=== PATIENT | female | born 1940 | race Caucasian/White ===

== ENCOUNTER 2017-05-12 16:56 | Inpatient (IN) ==
[2017-05-12 17:21] LABS: Basophils % 0.4 %; Eosinophils # 0.1 K/mcL (0.0-0.6); Eosinophils % 1.9 %; Hematocrit 31.5 % (35.3-44.9); Hemoglobin 11.3 g/dL (11.5-15.4); Immature Granulocytes % 0.2 % (0-4); Lymphocytes # 1.5 K/mcL (0.6-4.6); Mean Corpuscular HGB Conc 35.9 g/dL (31.6-35.5); Mean Corpuscular Hemoglobin 28.7 pg (28.0-33.3); Mean Corpuscular Volume 79.9 fL (83.0-100.0); Monocytes # 0.4 K/mcL (0.0-1.3); Monocytes % 7.8 %; Neutrophils # 3.2 K/mcL (1.6-8.9); Platelet Count 243 K/mcL (140-400); Red Blood Count 3.94 M/mcL (3.82-4.97); Red Cell Distribution Width 13.4 % (11.5-14.5); Segmented Neutrophils % 60.7 %
[2017-05-12 17:27] LABS: Prothrombin Time 10.4 Seconds (9.4-12.1)
[2017-05-12 17:29] LABS: Activated Partial Thrombo Time 28.9 Seconds (26.0-36.0)
[2017-05-12 17:35] LABS: BUN/Creatinine Ratio 8 (6-26); Blood Urea Nitrogen 6 mg/dL (7-20); Calcium 8.9 mg/dL (8.6-10.8); Carbon Dioxide 23 mEq/L (19-29); Chloride 87 mEq/L (98-109); Glucose 117 mg/dL (70-99); Osmolality,Calculated 251 (280-300); Potassium 4.1 mEq/L (3.5-4.5); Sodium 121 mEq/L (136-145); eGFR For African Americans > 60 (> 60); eGFR For Non-African Americans > 60 (> 60)
[2017-05-12 17:36] LABS: Albumin 3.4 g/dL (3.5-5.0); Albumin/Globulin Ratio 1.2 (1.1-2.2); Bilirubin,Direct 0.2 mg/dL (0.0-0.5); Bilirubin,Indirect 0.2 mg/dL (0.0-1.2); Bilirubin,Total 0.4 mg/dL (0.2-1.2); Globulin 2.8 g/dL (2.4-3.5); Total Protein 6.2 g/dL (6.0-8.3)
--- NOTE | 2017-05-12 17:40 | Emergency Department Note ---
Disposition Clinical Impression: Hyponatremia Disposition: Admitted As Inpatient Condition: Good Referrals: Izabela Fox MD [Primary Care Provider] - Forms: ED Satisfaction Letter Time of Disposition: 17:53 General Adult HPI - General Chief complaint: ED Recheck/Abnormal Lab/Rx Stated complaint: low na Source: patient Limitations: no limitations - History of Present Illness HPI Narrative: Patient presents to the emergency department for evaluation of hyponatremia. She states that she has been having some difficulty with balance as well as generalized weakness over the past week. She states that she was seen by her primary care doctor yesterday, had outpatient labs and was referred to the emergency department today secondary to hyponatremia. He states that she thinks that she is been drinking a normal amount of water, denies excessive intake though she states she has had a slight decrease in appetite. She denies headache visual changes confusion speech changes motor or sensory deficits. She denies chest pain or palpitations. She has had no lower extremity edema. She denies vomiting or diarrhea. She denies change in urination. Pain Scale: 0 - Related Data Home Medications Medication Instructions Recorded Confirmed Ibuprofen 800 mg PO PRN PRN 08/09/16 05/12/17 Lisinopril 2.5 mg PO DAILY 08/09/16 05/12/17 Sertraline [Zoloft] 25 mg PO DAILY 08/09/16 05/12/17 Previous Rx's Medication Instructions Recorded Hydrocodone/Acetaminophen [[place] 1 tab PO TID PRN #3 tab 08/09/16 5-325 Tablet] Allergies Allergy/AdvReac Type Severity Reaction Status Date / Time iodine Allergy Rash Verified 01/27/16 15:28 Constitutional: Reports: weakness. Denies: fever, chills Eyes: Denies: vision change ENT ED: Denies: throat pain, dysphagia Cardiovascular: Denies: chest pain, palpitations, dyspnea on exertion, edema, syncope Respiratory: Denies: cough, dyspnea Gastrointestinal: Denies: abdominal pain, nausea, vomiting, diarrhea, constipation Genitourinary: Denies: urgency, dysuria, frequency, hematuria Musculoskeletal: Denies: back pain, neck pain, joint swelling Integumentary: Denies: rash Neurological: Denies: headache, weakness, numbness, paresthesias, confusion Endocrine: Reports: fatigue Hematological/Lymphatic: Denies: easy bleeding, easy bruising Past Medical History - Past Medical History Medical history: Reports: cancer, diabetes, hyperlipidemia, hypertension Surgical history: Reports: non-contributory Psychiatric history: Reports: depression 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 Absent: scleral icterus - ENT ENT exam: mucous membranes dry, TM's normal bilaterally - Neck Neck exam: Present: normal inspection, full ROM. Absent: meningismus - Respiratory Respiratory exam: Present: normal lung sounds bilaterally - Cardiovascular Cardiovascular exam: Present: regular rate, normal rhythm, normal heart sounds - Abdominal Exam Abdominal exam: Present: soft, Non-Tender, normal bowel sounds. Absent: tenderness, distention, guarding, rebound, rigidity - Extremities Exam Extremities exam: Present: normal inspection, full ROM, normal capillary refill. Absent: tenderness, calf tenderness - Expanded Lower Extremity Exam Neurovascular/Tendon exam: Present: normal capillary refill - Neurological Exam Neurological exam: Present: alert, oriented X3, CN II-XII intact, normal gait. Absent: motor sensory deficit - Psychiatric Psychiatric exam: Present: normal affect, normal mood - Skin Skin exam: Present: warm, dry, intact, normal color Course Vital Signs Temperature 98.8 F 05/12/17 16:57 Pulse Rate 91 05/12/17 16:57 Respiratory Rate 18 05/12/17 16:57 Blood Pressure 151/50 05/12/17 16:57 O2 Sat by Pulse Oximetry 98 05/12/17 16:57 Temperature 98.8 F 05/12/17 16:57 Pulse Rate 91 05/12/17 16:57 Respiratory Rate 18 05/12/17 16:57 Blood Pressure 151/50 05/12/17 16:57 O2 Sat by Pulse Oximetry 98 05/12/17 16:57 Oxygen Delivery Oxygen Delivery Room Air Medical Decision Making - Lab Data Lab results reviewed: Yes I reviewed the patient's lab results. Result diagrams: 05/12/17 17:00 05/12/17 17:00 Lab Results 05/12/17 05/12/17 05/12/17 Range/Units 17:00 17:00 17:00 WBC 5.3 (4.3-11.1) K/mcL RBC 3.94 (3.82-4.97) M/mcL Hgb 11.3 L (11.5-15.4) g/dL Hct 31.5 L (35.3-44.9) % MCV 79.9 L (83.0-100.0) fL MCH 28.7 (28.0-33.3) pg MCHC 35.9 H (31.6-35.5) g/dL RDW 13.4 (11.5-14.5) % Plt Count 243 (140-400) K/mcL MPV 9.0 L (9.4-12.4) fL Immature Gran % 0.2 (0-4) % Seg Neutrophils % 60.7 % Lymphocytes % 29.0 % Monocytes % 7.8 % Eosinophils % 1.9 % Basophils % 0.4 % Neutrophils # 3.2 (1.6-8.9) K/mcL Lymphocytes # 1.5 (0.6-4.6) K/mcL Monocytes # 0.4 (0.0-1.3) K/mcL Eosinophils # 0.1 (0.0-0.6) K/mcL Basophils # 0.0 (0.0-0.2) K/mcL PT 10.4 (9.4-12.1) Seconds INR 1.0 APTT 28.9 (26.0-36.0) Seconds Sodium (136-145) mEq/L Potassium (3.5-4.5) mEq/L Chloride (98-109) mEq/L Carbon Dioxide (19-29) mEq/L BUN (7-20) mg/dL Creatinine (0.57-1.11) mg/dL Est GFR ( Amer) (> 60) Est GFR (Non-Af Amer) (> 60) BUN/Creatinine Ratio (6-26) Glucose (70-99) mg/dL Calculated Osmolality (280-300) Calcium (8.6-10.8) mg/dL Total Bilirubin 0.4 (0.2-1.2) mg/dL Direct Bilirubin 0.2 (0.0-0.5) mg/dL Indirect Bilirubin 0.2 (0.0-1.2) mg/dL AST 25 (5-34) Units/L ALT 25 (0-55) Units/L Alkaline Phosphatase 69 (38-126) Units/L Troponin I (0-0.03) ng/mL Serum Total Protein 6.2 (6.0-8.3) g/dL Albumin 3.4 L (3.5-5.0) g/dL Globulin 2.8 (2.4-3.5) g/dL Albumin/Globulin Ratio 1.2 (1.1-2.2) Lipase 44 (8-78) Units/L 05/12/17 05/12/17 Range/Units 17:00 17:00 WBC (4.3-11.1) K/mcL RBC (3.82-4.97) M/mcL Hgb (11.5-15.4) g/dL Hct (35.3-44.9) % MCV (83.0-100.0) fL MCH (28.0-33.3) pg MCHC (31.6-35.5) g/dL RDW (11.5-14.5) % Plt Count (140-400) K/mcL MPV (9.4-12.4) fL Immature Gran % (0-4) % Seg Neutrophils % % Lymphocytes % % Monocytes % % Eosinophils % % Basophils % % Neutrophils # (1.6-8.9) K/mcL Lymphocytes # (0.6-4.6) K/mcL Monocytes # (0.0-1.3) K/mcL Eosinophils # (0.0-0.6) K/mcL Basophils # (0.0-0.2) K/mcL PT (9.4-12.1) Seconds INR APTT (26.0-36.0) Seconds Sodium 121 L (136-145) mEq/L Potassium 4.1 (3.5-4.5) mEq/L Chloride 87 L (98-109) mEq/L Carbon Dioxide 23 (19-29) mEq/L BUN 6 L (7-20) mg/dL Creatinine 0.78 (0.57-1.11) mg/dL Est GFR ( Amer) > 60 (> 60) Est GFR (Non-Af Amer) > 60 (> 60) BUN/Creatinine Ratio 8 (6-26) Glucose 117 H (70-99) mg/dL Calculated Osmolality 251 L (280-300) Calcium 8.9 (8.6-10.8) mg/dL Total Bilirubin (0.2-1.2) mg/dL Direct Bilirubin (0.0-0.5) mg/dL Indirect Bilirubin (0.0-1.2) mg/dL AST (5-34) Units/L ALT (0-55) Units/L Alkaline Phosphatase (38-126) Units/L Troponin I 0.01 (0-0.03) ng/mL Serum Total Protein (6.0-8.3) g/dL Albumin (3.5-5.0) g/dL Globulin (2.4-3.5) g/dL Albumin/Globulin Ratio (1.1-2.2) Lipase (8-78) Units/L ITS Impressions Chest X-Ray 05/12/17 17:02 IMPRESSION: Atherosclerosis and mild enlarged heart size. No acute abnormality. D/ / 05/12/2017 17:38:58 Kyler Huerta MD / [email or web address] Interpreting Provider: Kyler Huerta MD Head CT 05/12/17 17:04 IMPRESSION: No acute intracranial abnormality. D/ / Kong Bonds MD / Kong Bonds MD Interpreting Provider: Kong Bonds MD - Radiology Data Radiology results reviewed: Yes I reviewed the patient's radiology results. - EKG Data EKG #1 EKG attestation: Yes I reviewed and interpreted this EKG. EKG shows normal: sinus rhythm (Normal sinus rhythm with rate of 70. Left axis deviation. No arrhythmia. No acute ST segment or T-wave changes. First- degree AV block.)
[2017-05-12] MEDS: 0.9 % Sodium Chloride 1,000 ML IVC SCH (17:41)
[2017-05-12] MEDS ORDERED: 0.9 % Sodium Chloride 1,000 ML IVC SCH (18:15)
[2017-05-12 22:50] LABS: Bilirubin,Urine Negative (Negative); Blood,Urine Negative (Negative); Clarity,Urine Clear (Clear); Color,Urine Yellow (Yellow); Glucose,Urine (UA) Normal (Normal); Ketones,Urine Negative (Negative); Leukocyte Esterase,Urine Negative (Negative); Nitrite,Urine Negative (Negative); Protein,Urine Negative (Neg-Trace); Specific Gravity,Urine <= 1.005 (1.010-1.025); Urobilinogen,Urine Normal (Normal)
[2017-05-12 22:53] LABS: BUN/Creatinine Ratio 10 (6-26); Blood Urea Nitrogen 7 mg/dL (7-20); Calcium 8.5 mg/dL (8.6-10.8); Carbon Dioxide 23 mEq/L (19-29); Chloride 90 mEq/L (98-109); Glucose 122 mg/dL (70-99); Osmolality,Calculated 251 (280-300); Potassium 3.8 mEq/L (3.5-4.5); Sodium 121 mEq/L (136-145); eGFR For African Americans > 60 (> 60); eGFR For Non-African Americans > 60 (> 60)
[2017-05-13] MEDS: 0.9 % Sodium Chloride 1,000 ML IVC SCH ×2 (02:47→16:14)
[2017-05-13 05:50] LABS: Phosphorous 3.1 mg/dL (2.3-4.7)
[2017-05-13] MEDS ORDERED: traMADol 50 MG TABLET PO PRN (11:47)
--- NOTE | 2017-05-13 11:55 | Internal Med History&Physical ---
Date of Encounter: 05/13/17 Time of Encounter: 11:20 Assessment and Plan (1) Hyponatremia Current visit: Yes Status: Acute Present on all lab checks since 2013. Suspect multifactorial etiology including Lasix use and dilutional from fluid intake. She was ordered normal saline IV through emergency room. I will discontinue this now. Lasix will be held and labs monitored. (2) Microcytic anemia Current visit: Yes Status: Acute Will order anemia testing in a.m. She has been using meloxicam and ibuprofen daily. (3) Depression Current visit: Yes Status: Acute Continue Zoloft. Qualifiers: Depression Type: unspecified Qualified Code(s): F32.9 - Major depressive disorder, single episode, unspecified (4) Hypertension Current visit: Yes Status: Chronic Continue lisinopril Qualifiers: Hypertension type: essential hypertension Qualified Code(s): I10 - Essential (primary) hypertension (5) Dementia Current visit: Yes Status: Acute Suspected based on clock drawing test. We will do MMSE. Head CT showed no acute pathology. Qualifiers: Dementia type: unspecified type Dementia behavioral disturbance: without behavioral disturbance Qualified Code(s): F03.90 - Unspecified dementia without behavioral disturbance Internal Medicine - H&P: HPI Chief complaint: Hyponatremia Admitted From: Home Plans for Post Hospital Care: Home History of present illness: Ms. Godinez is a 77 year old female who was contacted by staff at her PCP office and instructed to go to emergency room because of low sodium on lab work. Hyponatremia was confirmed on labs in the emergency room. She was [facility] to [facility] floor for ongoing care needs. She states she has felt dizzy and weak for several weeks but there has been no acute change in the past few days. She has had occasional falls at home without significant injury. She takes Lasix daily but is uncertain of the diagnosis for its use. She states she drinks 6-8 glasses of water daily. Her cardiovascular history is significant for hypertension she denies ID heart failure angina DVT or pulmonary embolus. Past Med Surg Social Fam HX - Past Medical History Medical history: cancer, diabetes, hyperlipidemia, hypertension Psychiatric history: anxiety, depression - Past Surgical History Surgical History: non-contributory - Social History Smoking Status: Never smoker Smokeless Tobacco Status: No Alcohol use: none Drug use: none Internal Medicine - H&P: Meds Hydrocodone/Acetaminophen [[place] 5-325 Tablet] 1 tab PO TID PRN #3 tab 08/09/16 [Rx] Ibuprofen 800 mg PO PRN PRN 08/09/16 [History] Lisinopril 2.5 mg PO DAILY 08/09/16 [History] Sertraline [Zoloft] 25 mg PO DAILY 08/09/16 [History] Allergies iodine Allergy (Verified 01/27/16 15:28) Rash All Systems PM: A 10-system review of systems was performed and is negative for pertinent findings except as documented above in the HPI. Review of systems: Gen.: She states her weight has been stable the past few months Cardiovascular: As per history of present illness Respiratory: She is a lifelong nonsmoker. She reports a history of asthma. She does not use home oxygen. GI: She denies disorders of her liver gallbladder or exocrine pancreas : She reports she has had "dropped bladder" but denies other kidney or bladder disorders Neurologic: She denies large distribution strokes or seizures. She states her memory is deficient. Endocrine: She has history of hyperlipidemia but denies diabetes or thyroid disease Hematology/oncology: She had uterine cancer with curative hysterectomy approximately 25 years ago. She denies other internal malignancies. 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 She denies gout or other bone joint or muscle disorders. - Constitutional Vitals: Temp Pulse Resp BP Pulse Ox 98.4 F 69 16 101/65 99 05/13/17 10:34 05/13/17 10:34 05/13/17 10:34 05/13/17 10:34 05/13/17 10:34 Exam: Gen.: She is a well-developed well-nourished female lying in bed who appears in no acute distress HEENT: Head is atraumatic and normocephalic. Eyes: EOMI. There is no scleral icterus. Mouth: Mucosa is moist. Neck: Supple and nontender. There is no thyromegaly or adenopathy noted. Heart: Regular without murmurs gallops or ectopics Lungs: No wheezes or crackles are heard. Abdomen: Soft and nontender. No masses or guarding are noted. Extremities: There is no cyanosis or clubbing noted. There is trace edema of the dorsum of the feet and lower legs. She has a few scattered ecchymosis on her arms and legs. Dorsalis pedis and posterior tibial pulses are trace palpable bilaterally. Neurologic: Mental status: She has a flat affect. She is able to answer most but not all questions of past medical history. Clock face drawing shows slight misplacement of the numbers and she was unable to place the hands correctly at requested time of 11:10. Cranial nerves: Smile is symmetric. Forehead wrinkles bilaterally. Tongue protrudes midline. EOMI. Motor: There is no pronator drift. Cerebellar: Finger to nose is intact bilaterally. Skin: Warm and dry Internal Med - H&P Results - Labs CBC & Chem 7: 05/12/17 17:00 05/12/17 21:55 Labs: BMP 05/12/17 21:55 Sodium 121 L Potassium 3.8 Chloride 90 L Carbon Dioxide 23 BUN 7 Creatinine 0.73 Glucose 122 H Calcium 8.5 L Urine 05/12/17 Range/Units 22:45 Urine Color Yellow (Yellow) Urine Clarity Clear (Clear) Urine pH 6.0 (5.0-8.0) pH Units Ur Specific [place] <= 1.005 L (1.010-1.025) Urine Protein Negative (Neg-Trace) mg/dL Urine Glucose (UA) Normal (Normal) mg/dL
[2017-05-13] MEDS: Lisinopril 20 MG TABLET PO SCH (13:56)
--- NOTE | 2017-05-13 15:32 | Electrocardiograph Report ---
[address] [place], [place] [address] Test Date: 2017-05-12 Pat Name: Shannan Godinez Department: [id number] Room: [facility] Gender: F Baker Paint: : [id number] Requested By: Tee Gonzalez Order Number: [id number] Reading MD: Chepe Grimaldo Measurements Intervals [place] Rate: 70 P: 49 HI: 232 QRS: -18 QRSD: 88 T: 20 QT: 368 QTc: 389 Interpretive Statements SINUS RHYTHM WITH SINUS ARRHYTHMIA WITH FIRST DEGREE AV BLOCK LOW QRS VOLTAGE IN PRECORDIAL LEADS Electronically Signed On 05-13-2017 15:29:58 EDT by Chepe Grimaldo
[2017-05-13] MEDS: Nystatin SUSP 5 ML UD.LIQ PO SCH ×2 (17:27→20:33)
[2017-05-13] MEDS ORDERED: Ibuprofen 600 MG TABLET PO PRN (17:49)
[2017-05-14] MEDS ORDERED: *HR* Enoxaparin 40 MG/0.4 ML SYRINGE SQ SCH (06:00)
[2017-05-14 06:06] LABS: Basophils % 0.5 %; Eosinophils # 0.1 K/mcL (0.0-0.6); Eosinophils % 2.7 %; Hematocrit 27.7 % (35.3-44.9); Hemoglobin 9.9 g/dL (11.5-15.4); Immature Granulocytes % 0.5 % (0-4); Lymphocytes # 1.1 K/mcL (0.6-4.6); Mean Corpuscular HGB Conc 35.7 g/dL (31.6-35.5); Mean Corpuscular Hemoglobin 28.9 pg (28.0-33.3); Mean Corpuscular Volume 80.8 fL (83.0-100.0); Mean Platelet Volume 9.1 fL (9.4-12.4); Monocytes # 0.3 K/mcL (0.0-1.3); Monocytes % 7.4 %; Neutrophils # 2.2 K/mcL (1.6-8.9); Platelet Count 205 K/mcL (140-400); Red Blood Count 3.43 M/mcL (3.82-4.97); Red Cell Distribution Width 13.9 % (11.5-14.5); Segmented Neutrophils % 58.9 %
[2017-05-14 06:23] LABS: BUN/Creatinine Ratio 15 (6-26); Blood Urea Nitrogen 10 mg/dL (7-20); Calcium 8.5 mg/dL (8.6-10.8); Carbon Dioxide 22 mEq/L (19-29); Chloride 96 mEq/L (98-109); Glucose 94 mg/dL (70-99); Osmolality,Calculated 263 (280-300); Potassium 4.2 mEq/L (3.5-4.5); Sodium 127 mEq/L (136-145); eGFR For African Americans > 60 (> 60); eGFR For Non-African Americans > 60 (> 60)
[2017-05-14] MEDS: Nystatin SUSP 5 ML UD.LIQ PO SCH (09:00)
[2017-05-14] MEDS: Lisinopril 20 MG TABLET PO SCH (09:00)
[2017-05-14 09:56] LABS: % Iron Saturation 11 % (15-50); Iron 37 mcg/dL (50-170); Transferrin 233 mg/dL (180-382)
[2017-05-14 10:16] LABS: Ferritin 76 ng/ml (5-204)
[2017-05-14 10:31] LABS: Folate 9.9 ng/mL (7.0-31.4)
--- NOTE | 2017-05-14 11:42 | Discharge Summary ---
Date of Encounter: 05/14/17 Time of Encounter: 11:30 - Discharge Diagnosis (1) Hyponatremia Priority: Primary Status: Acute (2) Microcytic anemia Priority: Secondary Status: Acute (3) Depression Priority: Secondary Status: Chronic Qualifiers: Depression Type: unspecified Qualified Code(s): F32.9 - Major depressive disorder, single episode, unspecified (4) Hypertension Priority: Secondary Status: Chronic Qualifiers: Hypertension type: essential hypertension Qualified Code(s): I10 - Essential (primary) hypertension - Discharge Medications Prescriptions: Ascorbic Acid [Vitamin C] 500 mg PO DAILY #30 tablet.er Ferrous Sulfate 325 mg PO DAILY #30 tablet. Home Medications: Hydrocodone/Acetaminophen [[place] 5-325 Tablet] 1 tab PO TID PRN #3 tab 08/09/16 [Rx] Sertraline [Zoloft] 25 mg PO DAILY 08/09/16 [History] Ascorbic Acid [Vitamin C] 500 mg PO DAILY #30 tablet.er 05/14/17 [Rx] Ferrous Sulfate 325 mg PO DAILY #30 tablet. 05/14/17 [Rx] Lisinopril [Zestril] 20 mg PO DAILY tab 05/14/17 [Rx] Allergies/Adverse Reactions: Allergies iodine Allergy (Verified 01/27/16 15:28) Rash Date of admission: 05/13/17 18:33 Primary care physician: Izabela Fox - Patient Status Disposition: Home, Self-Care Condition: Good Functional capacity at discharge: independent ambulation Overall status at discharge: patient is progressing back to baseline - Discharge Instructions Follow Up With: Izabela Fox MD [Primary Care Provider] - 1 week - Diet and Activity Activity: resume usual activities as tolerated Diet: advance to your usual diet Hospital course: Ms. Godinez is a 77 year old female who was contacted by staff at her PCP office and instructed to go to emergency room because of low sodium on lab work. Hyponatremia was confirmed on labs in the emergency room. She was admitted to [facility] for ongoing care needs. Initial orders were written by the emergency room physician. I saw her on May 13 and performed the history and physical. Lasix was held and she was given IV normal saline. Her sodium destini to 127 by the following day. She felt her balance and ambulation ability was back to baseline and felt better overall on May 14. She will remain off Lasix at discharge. Bn peptide was normal at 70 on labs May 14. Anemia testing showed iron 37, transferrin saturation 11%, ferritin 76, transferrin 233, B12 504, and folate 9.9. She will be prescribed ferrous sulfate with vitamin C at discharge. Hemoglobin decreased with IV fluid administration to 9.9 on the day of discharge. She will be discharged home and follow with her PCP Dr. Fox within 1 week. I told her she should remain off ibuprofen and meloxicam. She will use tramadol when necessary for pain. - Time Spent with Patient Total time spent providing and/or coordinating discharge services: - Constitutional Vitals: Temp Pulse Resp BP Pulse Ox 97.7 F 70 16 134/67 97 05/14/17 07:30 05/14/17 09:48 05/14/17 09:48 05/14/17 09:48 05/14/17 09:56
--- NOTE | 2017-05-14 12:11 | Physician Discharge Referral ---
Home Health/Hosp Referral Info Transfer to: Home Health Attending Provider: Kendell Provider in Charge Post Discharge: PCP James) - Diagnosis (1) Hyponatremia Priority: Primary Status: Acute (2) Microcytic anemia Priority: Secondary Status: Acute (3) Depression Priority: Secondary Status: Chronic (4) Hypertension Priority: Secondary Status: Chronic - Respiratory Orders Smoking Cessation: Smoking cessation has been advised. For more information, call the [place] Tobacco Quit Line at 9-412-NDVA-NOW. - Diet/Nutrition Diet/Nutrition Orders: Regular - Activity Activity Orders: Ambulate - Services Needed Following services are medically necessary services: Nursing, Home Health Aide, Physical Therapy, Occupational Therapy - Transfer Medications Prescriptions: Ascorbic Acid [Vitamin C] 500 mg PO DAILY #30 tablet.er Ferrous Sulfate 325 mg PO DAILY #30 tablet. Home Medications: Hydrocodone/Acetaminophen [[place] 5-325 Tablet] 1 tab PO TID PRN #3 tab 08/09/16 [Rx] Sertraline [Zoloft] 25 mg PO DAILY 08/09/16 [History] Ascorbic Acid [Vitamin C] 500 mg PO DAILY #30 tablet.er 05/14/17 [Rx] Ferrous Sulfate 325 mg PO DAILY #30 tablet. 05/14/17 [Rx] Lisinopril [Zestril] 20 mg PO DAILY tab 05/14/17 [Rx] Allergies/Adverse Reactions: Allergies iodine Allergy (Verified 01/27/16 15:28) Rash Certification: Further, I certify that my clinical findings support that this patient is homebound (i.e. absences from home require considerable and taxing effort and are for medical reasons or voodoo services or infrequently or short duration when for other reasons) because: Homebound Reason: Patient requires assistance of a person or device to safely leave home, Leaving home requires considerable and taxing effort due to condition (Marginally safe ambulatory skills, new medications) Attestation: My signature below is to certify that this patient is under my care and that I, or nurse practitioner, or a physician's unit assistant working with me, has a face-to -face encounter with this patient.
[2017-05-14 12:20] VITALS: BP 112/62
== END 2017-05-14 12:37 | disposition home health service (06) | DRG 641 ==
LOC: EMEROOPIK 16:56 → INPPIK 16:56
PROVIDERS: ADMIT Internal Medicine; ATTEND Internal Medicine

== ENCOUNTER 2018-05-20 13:21 | Inpatient (IN) ==
[2018-05-20] MEDS ORDERED: 0.9 % Sodium Chloride 1,000 ML IVC SCH ×2 (13:30→16:31)
--- NOTE | 2018-05-20 13:38 | Emergency Department Note ---
Disposition Clinical Impression: Altered mental status, Urinary tract infection, Hyponatremia Disposition: Admitted As Inpatient Altered Mental Status HPI - General Chief Complaint: ED Altered Mental Status Stated Complaint: Confusion and falling Time Seen by Provider: 05/20/18 13:25 Source: patient Mode of arrival: wheelchair Limitations: altered mental status Nursing Notes Reviewed: Yes Vital Signs Reviewed: Yes - History of Present Illness HPI Narrative: Patient has been falling more recently. 7 times since Wednesday. She claims she just loses her balance. She does not black out or have seizures. She had an appointment today with her doctor but her son locked his keys in the car so they came here instead she denies any pain fevers chills nausea vomiting or other complaints. She does have a history of early dementia MD complaint: altered mental status Onset (ago): day(s) (several) Timing confirmed by: family member Pain Scale: 0 Associated symptoms: Reports: denies other symptoms - Related Data Home Medications Medication Instructions Recorded Confirmed Sertraline [Zoloft] 100 mg PO BID 08/09/16 05/20/18 Atorvastatin [Lipitor] 80 mg PO HS 05/14/17 05/20/18 Bran/Gum/Fib/Irena/Psyl/Kelp/Pec 1,000 mg PO BID PRN 05/14/17 05/20/18 [Fiber 6 Tablet] Diclofenac Sodium [Voltaren] 100 gm TP TID 05/14/17 05/20/18 Docusate [Colace] 100 mg PO BID 05/14/17 05/20/18 Guaifenesin [Mucinex] 600 mg PO Q12H 05/14/17 05/20/18 Linaclotide [Linzess] 145 mcg PO DAILY 05/14/17 05/20/18 Mometasone Furoate [Nasonex] 17 gm NS DAILY 05/14/17 05/20/18 Montelukast [Singulair] 10 mg PO HS 05/14/17 05/20/18 Ranitidine HCl [Acid Psychologists] 150 mg PO BID 05/14/17 05/20/18 Tramadol HCl [Ultram] 50 mg PO TID PRN MDD 300mg 05/14/17 05/20/18 Previous Rx's Medication Instructions Recorded Ascorbic Acid [Vitamin C] 500 mg PO DAILY #30 tablet.er 05/14/17 Ferrous Sulfate 325 mg PO DAILY #30 tablet. 05/14/17 Lisinopril [Zestril] 20 mg PO DAILY tab 05/14/17 Allergies Allergy/AdvReac Type Severity Reaction Status Date / Time iodine Allergy Rash Verified 05/20/18 13:23 All systems ED: reviewed and negative except as stated. Review of Systems: As Per HPI Constitutional: Reports: other. Denies: fever, chills, weakness, weight change Eyes: Denies: eye pain, eye discharge, vision change ENT ED: Denies: ear pain, throat pain, dental pain, hearing loss, epistaxis, congestion, dysphagia Cardiovascular: Denies: chest pain, palpitations, dyspnea on exertion, edema, syncope Respiratory: Denies: cough, dyspnea, wheezes, hemoptysis, stridor Gastrointestinal: Denies: abdominal pain, nausea, vomiting, diarrhea, constipation, hematemesis, melena, hematochezia Genitourinary: Denies: dysuria, frequency, hematuria, discharge Musculoskeletal: Denies: back pain, neck pain, arthralgia, myalgia Integumentary: Denies: rash, abrasion, lesions Neurological: Denies: headache, weakness, numbness, paresthesias, confusion, abnormal gait, vertigo Psychiatric: Denies: anxiety, depression, suicidal thoughts, homicidal thoughts , auditory hallucinations, visual hallucinations Endocrine: Denies: fatigue Hematological/Lymphatic: Denies: easy bleeding, easy bruising Past Medical History - Past Medical History Attestation: Yes The following information was validated with the patient. Source: obtained from family, nursing notes reviewed Medical history: Reports: cancer, diabetes, hyperlipidemia, hypertension Surgical history: Reports: non-contributory Psychiatric history: Reports: anxiety, depression [employer] history: Reports: no [employer] history - Social History Smoking Status: Never smoker Smokeless Tobacco Status: No Alcohol use: Reports: none Drug use: Reports: none Physical Exam - General Limitations: no limitations General appearance: alert, in no apparent distress - Head Head exam: atraumatic, normocephalic, normal inspection - Eye Eye exam: Present: normal appearance, PERRL, EOMI - ENT ENT exam: normal exam, normal oropharynx, mucous membranes moist - Neck Neck exam: Present: normal inspection, full ROM, trachea midline - Chest Chest inspection: Present: normal inspection, symmetric chest wall rise - Respiratory Respiratory exam: Present: normal lung sounds bilaterally - Cardiovascular Cardiovascular exam: Present: regular rate, normal rhythm, normal heart sounds - Abdominal Exam Abdominal exam: Present: soft, Non-Tender. Absent: tenderness, distention, guarding, rebound, rigidity - Extremities Exam Extremities exam: Present: normal inspection, full ROM. Absent: tenderness, pedal edema - Back Exam Back exam: Present: normal inspection, full ROM. Absent: tenderness - Neurological Exam Neurological exam: Present: alert, other (minimal confusion as to the date but once oriented to the date she does remember it) - Psychiatric Psychiatric exam: Present: normal affect, normal mood - Skin Skin exam: Present: warm, dry, intact, normal color Course Vital Signs Temperature 97.9 F 05/20/18 13:25 Pulse Rate 89 05/20/18 13:25 Respiratory Rate 18 05/20/18 13:25 Blood Pressure 112/56 05/20/18 13:25 O2 Sat by Pulse Oximetry 95 05/20/18 13:25 Temperature 98.6 F 05/20/18 16:37 Pulse Rate 78 05/20/18 16:37 Respiratory Rate 20 05/20/18 16:37 Blood Pressure 134/67 05/20/18 16:37 O2 Sat by Pulse Oximetry 97 05/20/18 16:37 Oxygen Delivery Oxygen Delivery Room Air Altered Mental Status - MDM Narrative Medical decision making narrative: Discussed case with Dr. Rdz who accepts patient for admission I reviewed the patient's medication list - Lab Data Lab results reviewed: Yes I reviewed the patient's lab results. Result diagrams: 05/20/18 13:55 05/20/18 13:55 Lab Results 05/20/18 05/20/18 05/20/18 Range/Units 13:55 13:55 15:08 WBC 23.2 H (4.3-11.1) K/mcL RBC 4.25 (3.82-4.97) M/mcL Hgb 12.6 (11.5-15.4) g/dL Hct 35.7 (35.3-44.9) % MCV 84.0 (83.0-100.0) fL MCH 29.6 (28.0-33.3) pg MCHC 35.3 (31.6-35.5) g/dL RDW 13.1 (11.5-14.5) % Plt Count 198 (140-400) K/mcL MPV 9.5 (9.4-12.4) fL Seg Neutrophils % 80.0 % Band Neutrophils % 4.0 (0-4) % Lymphocytes % 8.0 % Monocytes % 6.0 % Promyelocytes % 2.0 H (0) % Neutrophils # 19.5 H (1.6-8.9) K/mcL Lymphocytes # 1.9 (0.6-4.6) K/mcL Monocytes # 1.4 H (0.0-1.3) K/mcL Platelet Estimate Normal (Normal) Sodium 121 L (136-145) mEq/L Potassium 4.6 (3.5-5.1) mEq/L Chloride 91 L (98-107) mEq/L Carbon Dioxide 20 L (23-29) mEq/L BUN 20 (8-23) mg/dL Creatinine 1.42 H (0.60-1.20) mg/dL Est GFR ( Amer) 43 L (> 60) Est GFR (Non-Af Amer) 36 L (> 60) BUN/Creatinine Ratio 14 (6-26) Glucose 164 H (70-105) mg/dL Calculated Osmolality 258 L (280-300) Calcium 8.8 (8.6-10.3) mg/dL Total Bilirubin 1.2 H (0.3-1.0) mg/dL AST 23 (13-39) Units/L ALT 17 (7-52) Units/L Alkaline Phosphatase 63 (34-104) Units/L Troponin I < 0.03 (< 0.04) ng/mL Serum Total Protein 6.2 L (6.4-8.9) g/dL Albumin 3.6 (3.5-5.7) g/dL Globulin 2.6 (2.4-3.5) g/dL Albumin/Globulin Ratio 1.4 (1.1-2.2) Urine Color Yellow (Yellow) Urine Clarity Cloudy A (Clear) Urine pH 5.5 (5.0-8.0) pH Units Ur Specific [place] 1.015 (1.010-1.025) Urine Protein 100 H (Neg-Trace) mg/dL Urine Glucose (UA) Normal (Normal) mg/dL Urine Ketones Negative (Negative) mg/dL Urine Blood Moderate H (Negative) Urine Nitrite Negative (Negative) Urine Bilirubin Negative (Negative) Urine Urobilinogen Normal (Normal) mg/dL Ur Leukocyte Esterase Moderate H (Negative) Urine Microscopic RBC 15-30 H (0-3) per hpf Urine Microscopic WBC TNTC H (0-3) per hpf Ur Squamous Epith Cells Few (None-Few) per lpf Urine Bacteria Many H (None-Few) per hpf Urine Mucus Moderate H (Few) Ur Culture Indicated? YES A (NO) - Radiology Data Radiology results reviewed: Yes I reviewed the patient's radiology results. - EKG Data EKG attestation: Yes I reviewed and interpreted this EKG. EKG results narrative: EKG shows normal sinus rhythm with a rate of 83 bpm. NC interval 193 ms. QRS duration 89 ms. QT interval 350 ms. QTc interval 390 ms R axis -17 degrees TPA Checklist - LKW: 3-4.5 hrs Add. Warnings/Precautions Patient/family understanding: The patient/family members have been counseled and understood the risk, benefit , and alternatives of treatment.
[2018-05-20 14:10] LABS: Hematocrit 35.7 % (35.3-44.9); Hemoglobin 12.6 g/dL (11.5-15.4); Mean Corpuscular HGB Conc 35.3 g/dL (31.6-35.5); Mean Corpuscular Hemoglobin 29.6 pg (28.0-33.3); Mean Platelet Volume 9.5 fL (9.4-12.4); Platelet Count 198 K/mcL (140-400); Red Blood Count 4.25 M/mcL (3.82-4.97); Red Cell Distribution Width 13.1 % (11.5-14.5)
[2018-05-20 14:20] LABS: Alanine Aminotransferase 17 Units/L (7-52); Albumin 3.6 g/dL (3.5-5.7); Albumin/Globulin Ratio 1.4 (1.1-2.2); Alkaline Phosphatase 63 Units/L (34-104); Aspartate Amino Transferase 23 Units/L (13-39); BUN/Creatinine Ratio 14 (6-26); Bilirubin,Total 1.2 mg/dL (0.3-1.0); Blood Urea Nitrogen 20 mg/dL (8-23); Calcium 8.8 mg/dL (8.6-10.3); Carbon Dioxide 20 mEq/L (23-29); Chloride 91 mEq/L (98-107); Globulin 2.6 g/dL (2.4-3.5); Glucose 164 mg/dL (70-105); Osmolality,Calculated 258 (280-300); Potassium 4.6 mEq/L (3.5-5.1); Sodium 121 mEq/L (136-145); Total Protein 6.2 g/dL (6.4-8.9); eGFR For Non-African Americans 36 (> 60)
[2018-05-20 14:29] LABS: Lymphocytes # 1.9 K/mcL (0.6-4.6); Monocytes # 1.4 K/mcL (0.0-1.3); Neutrophils # 19.5 K/mcL (1.6-8.9); Troponin I < 0.03 ng/mL (< 0.04)
[2018-05-20 14:30] LABS: Platelet Estimate Normal (Normal)
[2018-05-20 15:17] LABS: Bilirubin,Urine Negative (Negative); Blood,Urine Moderate (Negative); Clarity,Urine Cloudy (Clear); Color,Urine Yellow (Yellow); Glucose,Urine (UA) Normal (Normal); Ketones,Urine Negative (Negative); Leukocyte Esterase,Urine Moderate (Negative); Nitrite,Urine Negative (Negative); PH,Urine 5.5 pH Units (5.0-8.0); Protein,Urine 100 mg/dL (Neg-Trace); Specific Gravity,Urine 1.015 (1.010-1.025); Urobilinogen,Urine Normal (Normal)
[2018-05-20 15:27] LABS: Bacteria,Urine Many per hpf (None-Few); Mucus,Urine Moderate (Few); RBC,Urine 15-30 per hpf (0-3); Squamous Epithelial Cell,Urine Few per lpf (None-Few); WBC,Urine TNTC per hpf (0-3)
[2018-05-20] MEDS ORDERED: Ibuprofen 600 MG TABLET PO ONE (15:58)
[2018-05-20] MEDS ORDERED: cefTRIAXone 1,000 MG in Water for inj. (sterile) 20 ML 10 ML IVPB ONE (16:00)
[2018-05-20] MEDS ORDERED: traMADol 50 MG TABLET PO PRN (16:31)
[2018-05-20] MEDS ORDERED: Psyllium 1 PACKET POWD.PACK PO PRN (16:31)
[2018-05-20] MEDS ORDERED: Naloxone 0.4 MG/ML INJ IVP PRN (16:31)
[2018-05-20] MEDS: Famotidine 20 MG TABLET PO SCH (20:58)
[2018-05-20] MEDS: DICLOFENAC TOPICAL TP SCH (20:59)
[2018-05-21] MEDS ORDERED: Ascorbic Acid 500 MG TABLET PO SCH (06:30)
[2018-05-21 07:34] LABS: Basophils % 0.1 %; Hematocrit 32.3 % (35.3-44.9); Hemoglobin 11.3 g/dL (11.5-15.4); Immature Granulocytes % 1.3 % (0-4); Lymphocytes # 0.6 K/mcL (0.6-4.6); Lymphocytes % 2.4 %; Mean Corpuscular Hemoglobin 29.4 pg (28.0-33.3); Mean Corpuscular Volume 83.9 fL (83.0-100.0); Mean Platelet Volume 9.2 fL (9.4-12.4); Monocytes # 1.2 K/mcL (0.0-1.3); Monocytes % 5.2 %; Neutrophils # 20.8 K/mcL (1.6-8.9); Platelet Count 172 K/mcL (140-400); Red Blood Count 3.85 M/mcL (3.82-4.97); Red Cell Distribution Width 13.2 % (11.5-14.5)
[2018-05-21 07:47] LABS: Potassium 4.8 mEq/L (3.5-5.1)
--- NOTE | 2018-05-21 08:47 | Internal Med History&Physical ---
Date of Encounter: 05/21/18 Time of Encounter: 08:20 Assessment and Plan (1) Neutrophilic leukocytosis Current visit: Yes Status: Acute UA consistent with UTI. Culture is pending. She was started on Rocephin in emergency room. Will add lactobacillus and order CT of chest and abdomen to further evaluate. (2) RHINA (acute kidney injury) Current visit: Yes Status: Acute Creatinine normal at 0.68 on 03/09/2018. Etiology not obvious. Continue IV fluids and monitor renal indices. (3) Hyponatremia Current visit: Yes Status: Acute Chronic. Present on all labs since 2013. 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 Head CT was unremarkable. Will order CT of chest abdomen and pelvis as per above. (4) Hypertension Current visit: No Status: Chronic Blood pressure borderline low. Hold lisinopril and monitor. Qualifiers: Hypertension type: essential hypertension Qualified Code(s): I10 - Essential (primary) hypertension (5) Urinary tract infection Current visit: Yes Status: Acute Continue Rocephin. Add lactobacillus. Qualifiers: Urinary tract infection type: site unspecified Hematuria presence: with hematuria Qualified Code(s): N39.0 - Urinary tract infection, site not specified; R31.9 - Hematuria, unspecified (6) Frequent falls Current visit: Yes Status: Acute Order PT and OT evaluation. Check orthostatic vital signs. Internal Medicine - H&P: HPI Chief complaint: Falls Admitted From: Emergency Dept Plans for Post Hospital Care: Home History of present illness: Ms. Godinez is a 78 year old female who came to emergency room after she had had multiple falls in the past week. She states she loses her balance but denies loss of consciousness or vertigo. She denies any injury from the falls. She denies pain at present time. She was evaluated in emergency room and found to have hyponatremia, leukocytosis with left shift, azotemia, and UTI. She was admitted to [facility] floor for ongoing care needs. Neurologic history is positive for diagnosis of early dementia. She denies large distribution strokes or seizures. She typically uses a walker to ambulate at home. Past Med Surg Social Fam HX - Past Medical History Medical history: cancer, diabetes, hyperlipidemia, hypertension Additional medical history: Early dementia Psychiatric history: anxiety, depression - Past Surgical History Surgical History: non-contributory - Social History Smoking Status: Never smoker Smokeless Tobacco Status: No Alcohol use: none Drug use: none Internal Medicine - H&P: Meds Sertraline [Zoloft] 100 mg PO BID 08/09/16 [History] Ascorbic Acid [Vitamin C] 500 mg PO DAILY #30 tablet.er 05/14/17 [Rx] Atorvastatin [Lipitor] 80 mg PO HS 05/14/17 [History] Bran/Gum/Fib/Irena/Psyl/Kelp/Pec [Fiber 6 Tablet] 1,000 mg PO BID PRN 05/14/17 [ History] Diclofenac Sodium [Voltaren] 100 gm TP TID 05/14/17 [History] Docusate [Colace] 100 mg PO BID 05/14/17 [History] Ferrous Sulfate 325 mg PO DAILY #30 tablet. 05/14/17 [Rx] Guaifenesin [Mucinex] 600 mg PO Q12H 05/14/17 [History] Linaclotide [Linzess] 145 mcg PO DAILY 05/14/17 [History] Lisinopril [Zestril] 20 mg PO DAILY tab 05/14/17 [Rx] Mometasone Furoate [Nasonex] 17 gm NS DAILY 05/14/17 [History] Montelukast [Singulair] 10 mg PO HS 05/14/17 [History] Ranitidine HCl [Acid Airfield Services Officer] 150 mg PO BID 05/14/17 [History] Tramadol HCl [Ultram] 50 mg PO TID PRN MDD 300mg 05/14/17 [History] 3 Allergy/AdvReac Type Severity Reaction Status Date / Time iodine Allergy Rash Verified 05/20/18 13:23 All Systems PM: A 10-system review of systems was performed and is negative for pertinent findings except as documented above in the HPI. Review of systems: Review of systems from her May 2017 [facility] hospitalization were reviewed and revised as below. Gen.: Her weight has decreased from 87.347 kg on 05/14/2017 to 83.915 kg admission now. Cardiovascular: She has history of hypertension but no SC heart failure angina DVT or pulmonary embolus. Respiratory: She is a lifelong nonsmoker. She reports a history of asthma. She does not use home oxygen. GI: She denies disorders of her liver gallbladder or exocrine pancreas : She reports she has had "dropped bladder" but denies other kidney or bladder disorders Neurologic: As per history of present illness. Endocrine: She has history of hyperlipidemia but denies diabetes or thyroid disease Hematology/oncology: She had uterine cancer with curative hysterectomy approximately 25 years ago. She denies other internal malignancies. Psychiatric: She has anxiety and depression but denies other mental health issues Musk skeletal: She has DJD and has had injections in her knees. She denies gout or other bone joint or muscle disorders. - Constitutional Vitals: Temp Pulse Resp BP Pulse Ox 97.3 F L 82 15 105/69 96 05/21/18 06:33 05/21/18 06:33 05/21/18 06:33 05/21/18 06:33 05/21/18 06:33 Exam: Enteral: She is a well-developed well nourished female sitting in bed who appears in no acute distress at present time HEENT: Head is atraumatic and normocephalic. Eyes: EOMI. There is no scleral icterus. Mouth: Mucosa is moist. Neck: Supple and nontender. There is no thyromegaly or adenopathy noted. Heart: Regular without murmurs gallops or ectopics Lungs: No wheezes or crackles are heard. Abdomen: Soft and nontender. No masses or guarding are noted. Extremities: There is no cyanosis edema or clubbing noted. Dorsalis pedis and posttibial pulses are trace palpable bilaterally. Neurologic: Mental status: She is talkative and able to answer most questions with reasonable answers. Cranial nerves: Smile is symmetric. Forehead wrinkles bilaterally. Tongue protrudes midline. EOMI. Motor: There is no pronator drift. Cerebellar: Finger to nose is intact bilaterally. Skin: Warm and dry Internal Med - H&P Results - Labs CBC & Chem 7: 05/21/18 07:15 05/21/18 07:15 Labs: Short CBC 05/21/18 Range/Units 07:15 WBC 22.9 H (4.3-11.1) K/mcL Hgb 11.3 L (11.5-15.4) g/dL Hct 32.3 L (35.3-44.9) % Plt Count 172 (140-400) K/mcL Neutrophils # 20.8 H (1.6-8.9) K/mcL BMP 05/21/18 07:15 Sodium 118 L* Potassium 4.8 Chloride 90 L Carbon Dioxide 23 BUN 24 H Creatinine 1.50 H Glucose 130 H Calcium 8.0 L
[2018-05-21] MEDS ORDERED: Lisinopril 20 MG TABLET PO SCH (09:00)
[2018-05-21] MEDS: 0.9 % Sodium Chloride 1,000 ML IVC SCH (10:24)
[2018-05-21] MEDS: LINZESS 145MG PO SCH (10:24)
[2018-05-21] MEDS: Lactobacillus 1 EACH CAP.SPRINK PO SCH ×2 (10:24→20:34)
[2018-05-21] MEDS: DICLOFENAC TOPICAL TP SCH ×3 (10:24→20:55)
[2018-05-21] MEDS: Famotidine 20 MG TABLET PO SCH (10:24)
[2018-05-21] MEDS: cefTRIAXone 1,000 MG in Water for inj. (sterile) 20 ML 10 ML IVP SCH (16:16)
[2018-05-21] MEDS: Fluticasone Propionate Nasal 50 MCG/SPRAY BOTTLE NS SCH (16:16)
[2018-05-22] MEDS: 0.9 % Sodium Chloride 1,000 ML IVC SCH ×2 (03:30→14:36)
[2018-05-22 06:36] LABS: Basophils % 0.2 %; Eosinophils # 0.1 K/mcL (0.0-0.6); Eosinophils % 0.5 %; Hematocrit 32.7 % (35.3-44.9); Hemoglobin 11.4 g/dL (11.5-15.4); Immature Granulocytes % 0.8 % (0-4); Lymphocytes # 0.6 K/mcL (0.6-4.6); Lymphocytes % 4.5 %; Mean Corpuscular HGB Conc 34.9 g/dL (31.6-35.5); Mean Corpuscular Hemoglobin 29.2 pg (28.0-33.3); Mean Corpuscular Volume 83.8 fL (83.0-100.0); Mean Platelet Volume 9.6 fL (9.4-12.4); Monocytes # 0.8 K/mcL (0.0-1.3); Monocytes % 6.4 %; Neutrophils # 11.6 K/mcL (1.6-8.9); Platelet Count 188 K/mcL (140-400); Segmented Neutrophils % 87.6 %
[2018-05-22 06:59] LABS: BUN/Creatinine Ratio 19 (6-26); Blood Urea Nitrogen 19 mg/dL (8-23); Calcium 8.2 mg/dL (8.6-10.3); Carbon Dioxide 21 mEq/L (23-29); Chloride 93 mEq/L (98-107); Glucose 95 mg/dL (70-105); Osmolality,Calculated 256 (280-300); Potassium 4.4 mEq/L (3.5-5.1); Sodium 122 mEq/L (136-145); eGFR For Non-African Americans 53 (> 60)
[2018-05-22] MEDS: Famotidine 20 MG TABLET PO SCH (08:45)
[2018-05-22] MEDS: Fluticasone Propionate Nasal 50 MCG/SPRAY BOTTLE NS SCH (08:45)
[2018-05-22] MEDS: Lactobacillus 1 EACH CAP.SPRINK PO SCH ×2 (08:45→21:23)
[2018-05-22] MEDS: cefTRIAXone 1,000 MG in Water for inj. (sterile) 20 ML 10 ML IVP SCH (08:46)
[2018-05-22] MEDS: LINZESS 145MG PO SCH (09:00)
[2018-05-22] MEDS: DICLOFENAC TOPICAL TP SCH ×3 (09:00→21:35)
--- NOTE | 2018-05-22 10:55 | Internal Med Progress Note ---
Date of Encounter: 05/22/18 Time of Encounter: 10:45 - Assessment and plan (1) Neutrophilic leukocytosis Current Visit: Yes Status: Acute Assessment and plan: May 22. Significantly improved. Continue Rocephin and lactobacillus. CT of chest and abdomen were unremarkable for acute pathology. (2) RHINA (acute kidney injury) Current Visit: Yes Status: Acute Assessment and plan: May 22. Creatinine significantly improved at 1.00. Continue IV fluids and withholding lisinopril. Recheck labs in a.m. (3) Hyponatremia Current Visit: Yes Status: Acute Assessment and plan: May 22. Sodium improved at 122. Continue present management (4) Hypertension Current Visit: No Status: Chronic Assessment and plan: May 22. Blood pressure stable. Remain off lisinopril. Qualifiers: Hypertension type: essential hypertension Qualified Code(s): I10 - Essential (primary) hypertension (5) Urinary tract infection Current Visit: Yes Status: Acute Assessment and plan: May 22. Preliminary urine culture shows gram negative rods. Continue empiric Rocephin with lactobacillus. Qualifiers: Urinary tract infection type: site unspecified Hematuria presence: with hematuria Qualified Code(s): N39.0 - Urinary tract infection, site not specified; R31.9 - Hematuria, unspecified (6) Frequent falls Current Visit: Yes Status: Acute Assessment and plan: May 22. PT and OT evaluation has been ordered. Orthostatic vital signs ordered. - Subjective Interval history: May 22. She has no new complaints and feels better. - Constitutional Vitals: Temp Pulse Resp BP Pulse Ox 97.8 F 118 16 119/72 95 05/22/18 07:05 05/22/18 07:05 05/22/18 07:05 05/22/18 07:05 05/22/18 07:05 Exam: She is resting comfortably in bed and appears in no acute distress. She answers questions appropriately. I reviewed her medications. I discussed pertinent lab results with her. Internal Medicine: Result - Labs CBC & Chem 7: 05/22/18 05:50 05/22/18 05:50 Labs: Short CBC 05/22/18 Range/Units 05:50 WBC 13.2 H (4.3-11.1) K/mcL Hgb 11.4 L (11.5-15.4) g/dL Hct 32.7 L (35.3-44.9) % Plt Count 188 (140-400) K/mcL Neutrophils # 11.6 H (1.6-8.9) K/mcL BMP 05/22/18 05:50 Sodium 122 L Potassium 4.4 Chloride 93 L Carbon Dioxide 21 L BUN 19 Creatinine 1.00 Glucose 95 Calcium 8.2 L Consult Discharge Plan - Plan Referrals: Izabela Fox MD [Primary Care Provider] - 1 week
[2018-05-23] MEDS: 0.9 % Sodium Chloride 1,000 ML IVC SCH (02:54)
[2018-05-23 06:55] LABS: Basophils % 0.1 %; Eosinophils # 0.1 K/mcL (0.0-0.6); Eosinophils % 0.7 %; Hematocrit 29.9 % (35.3-44.9); Hemoglobin 10.4 g/dL (11.5-15.4); Immature Granulocytes % 0.6 % (0-4); Lymphocytes # 0.7 K/mcL (0.6-4.6); Lymphocytes % 7.3 %; Mean Corpuscular HGB Conc 34.8 g/dL (31.6-35.5); Mean Corpuscular Volume 83.3 fL (83.0-100.0); Mean Platelet Volume 9.7 fL (9.4-12.4); Monocytes # 0.9 K/mcL (0.0-1.3); Monocytes % 8.8 %; Neutrophils # 8.1 K/mcL (1.6-8.9); Platelet Count 215 K/mcL (140-400); Red Blood Count 3.59 M/mcL (3.82-4.97); Red Cell Distribution Width 13.1 % (11.5-14.5); Segmented Neutrophils % 82.5 %
[2018-05-23 07:17] LABS: BUN/Creatinine Ratio 16 (6-26); Blood Urea Nitrogen 12 mg/dL (8-23); Calcium 7.8 mg/dL (8.6-10.3); Carbon Dioxide 21 mEq/L (23-29); Chloride 100 mEq/L (98-107); Glucose 96 mg/dL (70-105); Osmolality,Calculated 264 (280-300); Potassium 3.7 mEq/L (3.5-5.1); Sodium 127 mEq/L (136-145); eGFR For Non-African Americans > 60 (> 60)
[2018-05-23] MEDS: Lactobacillus 1 EACH CAP.SPRINK PO SCH ×2 (09:14→20:51)
[2018-05-23] MEDS: Fluticasone Propionate Nasal 50 MCG/SPRAY BOTTLE NS SCH (09:14)
[2018-05-23] MEDS: cefTRIAXone 1,000 MG in Water for inj. (sterile) 20 ML 10 ML IVP SCH (09:14)
[2018-05-23] MEDS: Famotidine 20 MG TABLET PO SCH (09:14)
[2018-05-23] MEDS: DICLOFENAC TOPICAL TP SCH ×3 (09:17→20:52)
[2018-05-23] MEDS: LINZESS 145MG PO SCH (09:17)
--- NOTE | 2018-05-23 10:38 | Electrocardiograph Report ---
[address] [place], [place] [address] Test Date: 2018-05-20 Pat Name: Shannan Godinez Department: [id number] Room: [facility] Gender: F Curbstone Setter: [id number] : [id number] Requested By: Miles Call Order Number: [id number] Reading MD: Deon Qiu Measurements Intervals [place] Rate: 83 P: 55 [place]: 193 QRS: -17 QRSD: 89 T: 35 QT: 350 QTc: 390 Interpretive Statements SINUS RHYTHM LOW QRS VOLTAGE IN PRECORDIAL LEADS BASELINE ARTIFACT Electronically Signed On 05-23-2018 10:36:49 EDT by Deon Qiu
--- NOTE | 2018-05-23 11:54 | Internal Med Progress Note ---
Date of Encounter: 05/23/18 Time of Encounter: 11:45 - Assessment and plan (1) Neutrophilic leukocytosis Current Visit: Yes Status: Acute Assessment and plan: May 22. Significantly improved. Continue Rocephin and lactobacillus. CT of chest and abdomen were unremarkable for acute pathology. May 23. WBC normal now but left shift still present. Urine culture showed Escherichia coli with broad sensitivity. Continue IV Rocephin and lactobacillus. (2) RHINA (acute kidney injury) Current Visit: Yes Status: Acute Assessment and plan: May 22. Creatinine significantly improved at 1.00. Continue IV fluids and withholding lisinopril. Recheck labs in a.m. May 23. Creatinine further improved to 0.77. Continue present management. (3) Hyponatremia Current Visit: Yes Status: Acute Assessment and plan: May 22. Sodium improved at 122. Continue present management May 23. Sodium further improved 127. Continue present management. (4) Hypertension Current Visit: No Status: Chronic Assessment and plan: May 22. Blood pressure stable. Remain off lisinopril. Qualifiers: Hypertension type: essential hypertension Qualified Code(s): I10 - Essential (primary) hypertension (5) Urinary tract infection Current Visit: Yes Status: Acute Assessment and plan: May 22. Preliminary urine culture shows gram negative rods. Continue empiric Rocephin with lactobacillus. May 23. Continue Rocephin and Lactobacillus for Escherichia coli. Qualifiers: Urinary tract infection type: site unspecified Hematuria presence: with hematuria Qualified Code(s): N39.0 - Urinary tract infection, site not specified; R31.9 - Hematuria, unspecified (6) Frequent falls Current Visit: Yes Status: Acute Assessment and plan: May 22. PT and OT evaluation has been ordered. Orthostatic vital signs ordered. May 23. PT and OT feel she could benefit from swing bed or alternatively have home health services provided. - Subjective Interval history: May 22. She has no new complaints and feels better. May 23. She has no new complaints. - Constitutional Vitals: Temp Pulse Resp BP Pulse Ox 97.6 F 81 17 131/66 95 05/23/18 10:30 05/23/18 10:30 05/23/18 10:30 05/23/18 10:30 05/23/18 10:30 Exam: She is resting comfortably and appears in no acute distress. Her affect is bright and cheerful. Her conversation is appropriate. I reviewed her medications and lab results. Internal Medicine: Result - Labs CBC & Chem 7: 05/23/18 05:50 05/23/18 05:50 Labs: Short CBC 05/23/18 Range/Units 05:50 WBC 9.9 (4.3-11.1) K/mcL Hgb 10.4 L (11.5-15.4) g/dL Hct 29.9 L (35.3-44.9) % Plt Count 215 (140-400) K/mcL Neutrophils # 8.1 (1.6-8.9) K/mcL BMP 05/23/18 05:50 Sodium 127 L Potassium 3.7 Chloride 100 Carbon Dioxide 21 L BUN 12 Creatinine 0.77 Glucose 96 Calcium 7.8 L Consult Discharge Plan - Plan Referrals: Izabela Fox MD [Primary Care Provider] - 1 week
[2018-05-24] MEDS ORDERED: Cefuroxime PO 500 MG TABLET PO SCH (06:00)
[2018-05-24] MEDS ORDERED: Cefuroxime PO 250 MG TABLET PO SCH ×2 (08:00→08:45)
[2018-05-24] MEDS: Fluticasone Propionate Nasal 50 MCG/SPRAY BOTTLE NS SCH (08:52)
[2018-05-24] MEDS: Lactobacillus 1 EACH CAP.SPRINK PO SCH (08:52)
[2018-05-24] MEDS: DICLOFENAC TOPICAL TP SCH ×2 (08:56→14:46)
[2018-05-24] MEDS: LINZESS 145MG PO SCH (08:56)
[2018-05-24] MEDS ORDERED: Famotidine 20 MG TABLET PO SCH (09:00)
[2018-05-24 11:36] VITALS: BP 137/79
--- NOTE | 2018-05-24 14:33 | Discharge Summary ---
Date of Encounter: 05/24/18 Time of Encounter: 14:25 - Discharge Diagnosis (1) Urinary tract infection Priority: Primary Status: Acute Qualifiers: Urinary tract infection type: site unspecified Hematuria presence: with hematuria Qualified Code(s): N39.0 - Urinary tract infection, site not specified; R31.9 - Hematuria, unspecified (2) RHINA (acute kidney injury) Priority: Secondary Status: Resolved (3) Hyponatremia Priority: Secondary Status: Acute (4) Hypertension Priority: Secondary Status: Chronic Qualifiers: Hypertension type: essential hypertension Qualified Code(s): I10 - Essential (primary) hypertension (5) Frequent falls Priority: Secondary Status: Acute Hospital course: Ms. Godinez is a 78 year old female who came to emergency room after she had had multiple falls in the past week. She states she loses her balance but denies loss of consciousness or vertigo. She denies any injury from the falls. She denies pain at present time. She was evaluated in emergency room and found to have hyponatremia, leukocytosis with left shift, azotemia, and UTI. She was admitted to [facility] for ongoing care needs. Initial orders were written by the emergency room physician. I saw her on May 21 and performed a history and physical. She was started empirically on Rocephin with lactobacillus for UTI. Leukocytosis resolved by May 23 and there was improvement in left shift. Urine culture returned showing Escherichia coli with broad sensitivity. She will continue with antibiotic and probiotic for 3 additional days at discharge. IV fluids were given and lisinopril was held. Her sodium improved to 127 and creatinine normalized to 0.77 with estimated GFR greater than 60 on May 23. She will remain off lisinopril at discharge. She had physical therapy and occupational therapy evaluations with ongoing interventions and made satisfactory improvement. On May 24 she was stable for discharge home. She will follow with her PCP Dr. Fox within 1 week. - Time Spent with Patient Total time spent providing and/or coordinating discharge services: - Discharge Medications Prescriptions: Cefuroxime PO [Ceftin] 500 mg PO Q12HR #6 tablet Lactobacillus [Culturelle] 1 each PO BID #6 cap.sprink Home Medications: Sertraline [Zoloft] 100 mg PO BID 08/09/16 [History] Ascorbic Acid [Vitamin C] 500 mg PO DAILY #30 tablet.er 05/14/17 [Rx] Atorvastatin [Lipitor] 80 mg PO HS 05/14/17 [History] Bran/Gum/Fib/Irena/Psyl/Kelp/Pec [Fiber 6 Tablet] 1,000 mg PO BID PRN 05/14/17 [ History] Diclofenac Sodium [Voltaren] 100 gm TP TID 05/14/17 [History] Docusate [Colace] 100 mg PO BID 05/14/17 [History] Ferrous Sulfate 325 mg PO DAILY #30 tablet. 05/14/17 [Rx] Guaifenesin [Mucinex] 600 mg PO Q12H 05/14/17 [History] Linaclotide [Linzess] 145 mcg PO DAILY 05/14/17 [History] Mometasone Furoate [Nasonex] 17 gm NS DAILY 05/14/17 [History] Montelukast [Singulair] 10 mg PO HS 05/14/17 [History] Ranitidine HCl [Acid Pump Assembler] 150 mg PO BID 05/14/17 [History] Tramadol HCl [Ultram] 50 mg PO TID PRN MDD 300mg 05/14/17 [History] Cefuroxime PO [Ceftin] 500 mg PO Q12HR #6 tablet 05/24/18 [Rx] Lactobacillus [Culturelle] 1 each PO BID #6 cap.sprink 05/24/18 [Rx] Allergies/Adverse Reactions: 3 Allergy/AdvReac Type Severity Reaction Status Date / Time iodine Allergy Rash Verified 05/20/18 13:23 Date of admission: 05/21/18 08:54 Primary care physician: Izabela Fox - Constitutional Vitals: Temp Pulse Resp BP Pulse Ox 98.5 F 73 17 137/79 97 05/24/18 11:34 05/24/18 11:34 05/24/18 11:34 05/24/18 11:34 05/24/18 11:34 - Patient Status Disposition: Home Health Service Overall status at discharge: patient is progressing back to baseline - Discharge Instructions Follow Up With: Izabela Fox MD [Primary Care Provider] - 1 week - Diet and Activity Activity: as per physical therapy Diet: low salt diet
--- NOTE | 2018-05-24 14:40 | Physician Discharge Referral ---
Home Health/Hosp Referral Info Transfer to: Home Health Attending Provider: Kendell Provider in Charge Post Discharge: PCP James) - Diagnosis (1) Urinary tract infection Priority: Primary Status: Acute (2) RHINA (acute kidney injury) Priority: Secondary Status: Resolved (3) Hyponatremia Priority: Secondary Status: Acute (4) Hypertension Priority: Secondary Status: Chronic (5) Frequent falls Priority: Secondary Status: Acute - Respiratory Orders Smoking Cessation: Smoking cessation has been advised. For more information, call the [place] [employer] Quit Line at 3-556-DMUK-NOW. - Diet/Nutrition Diet/Nutrition Orders: Cardiac - Activity Activity Orders: Walker - Services Needed Following services are medically necessary services: Nursing, Home Health Aide, Physical Therapy, Occupational Therapy - Transfer Medications Prescriptions: Cefuroxime PO [Ceftin] 500 mg PO Q12HR #6 tablet Lactobacillus [Culturelle] 1 each PO BID #6 cap.sprink Home Medications: Sertraline [Zoloft] 100 mg PO BID 08/09/16 [History] Ascorbic Acid [Vitamin C] 500 mg PO DAILY #30 tablet.er 05/14/17 [Rx] Atorvastatin [Lipitor] 80 mg PO HS 05/14/17 [History] Bran/Gum/Fib/Irena/Psyl/Kelp/Pec [Fiber 6 Tablet] 1,000 mg PO BID PRN 05/14/17 [ History] Diclofenac Sodium [Voltaren] 100 gm TP TID 05/14/17 [History] Docusate [Colace] 100 mg PO BID 05/14/17 [History] Ferrous Sulfate 325 mg PO DAILY #30 tablet. 05/14/17 [Rx] Guaifenesin [Mucinex] 600 mg PO Q12H 05/14/17 [History] Linaclotide [Linzess] 145 mcg PO DAILY 05/14/17 [History] Mometasone Furoate [Nasonex] 17 gm NS DAILY 05/14/17 [History] Montelukast [Singulair] 10 mg PO HS 05/14/17 [History] Ranitidine HCl [Acid Knife Blade Polisher] 150 mg PO BID 05/14/17 [History] Tramadol HCl [Ultram] 50 mg PO TID PRN MDD 300mg 05/14/17 [History] Cefuroxime PO [Ceftin] 500 mg PO Q12HR #6 tablet 05/24/18 [Rx] Lactobacillus [Culturelle] 1 each PO BID #6 cap.sprink 05/24/18 [Rx] Allergies/Adverse Reactions: 3 Allergy/AdvReac Type Severity Reaction Status Date / Time iodine Allergy Rash Verified 05/20/18 13:23 Certification: Further, I certify that my clinical findings support that this patient is homebound (i.e. absences from home require considerable and taxing effort and are for medical reasons or jew services or infrequently or short duration when for other reasons) because: Homebound Reason: Leaving home requires considerable and taxing effort due to condition (Impaired walking ability with frequent falls) Attestation: My signature below is to certify that this patient is under my care and that I, or nurse practitioner, or a physician's hygiene assistant working with me, has a face-to -face encounter with this patient.
== END 2018-05-24 16:28 | disposition home health service (06) | DRG 690 ==
LOC: EMEROOPIK 13:21 → INPPIK 13:21
PROVIDERS: ADMIT Internal Medicine; ATTEND Internal Medicine